=== PATIENT | male | born 1955 | race African-American/Black ===

== ENCOUNTER 2018-07-18 13:30 | Emergency (ER) | payer SELFPAY ==
[~2018-07-18] VITALS: Ht 160 cm; Wt 45.0 kg
[2018-07-18 13:46] VITALS: BP 146/92
[2018-07-18] MEDS ORDERED: METO25TA6 PO (13:51)
[2018-07-18] MEDS ORDERED: CARB-31 PO (13:51)
[2018-07-18] MEDS ORDERED: ATOR10TA69 PO (13:51)
== END 2018-07-18 16:00 | disposition left against medical advice (07) ==
LOC: ER 14:01
DX: R07.89 Other chest pain (principal); R42 Dizziness and giddiness; Z53.21 Procedure and treatment not carried out due to patient leaving prior to being seen by health care provider